=== PATIENT | female | born 1930 | race Caucasian/White ===

== ENCOUNTER 2019-06-23 08:42 | Outpatient (CLI) | payer MEDICARE, MEDICAID | END 2019-06-23 23:59 | disposition home or self-care (01) | LOC: CT 08:42 | PROVIDERS: ATTEND Internal Medicine | DX: M47.812 Spondylosis without myelopathy or radiculopathy, cervical region (principal); M43.22 Fusion of spine, cervical region; I65.23 Occlusion and stenosis of bilateral carotid arteries; I63.89 Other cerebral infarction; N17.9 Acute kidney failure, unspecified; F20.9 Schizophrenia, unspecified; R22.1 Localized swelling, mass and lump, neck; F03.91 Unspecified dementia, unspecified severity, with behavioral disturbance; I69.90 Unspecified sequelae of unspecified cerebrovascular disease; F29 Unspecified psychosis not due to a substance or known physiological condition | CPT/HCPCS: 70490-TC ==